=== PATIENT | female | born 2000 | race Hispanic/Latino ===

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

== ENCOUNTER 2024-07-07 22:07 | Emergency (ER) | payer OTHER ==
[~2024-07-07] VITALS: Ht 152.4 cm; Wt 83.9 kg
[~2024-07-07 22:07] MED LIST: CEFDINIR300 MG PO; CEPHALEXIN500 MG PO; CIPRO250 MG PO; DIPHENHYDRAMINE25 M2 PO; ESGIC 50-325-41 EACH PO; ONDANSETRON ODT4 MG PO; ZOFRAN8 MG PO
[2024-07-07 22:39] VITALS: TEMP 98.4
[2024-07-07] MEDS: SODIUM CHLORIDE 0.9% 1000ML 1,000 ML IV ONE (23:11)
[2024-07-07] MEDS: FAMOTIDINE 20 MG/2 ML VIAL IV STA (23:12)
[2024-07-07] MEDS: ONDANSETRON HCL INJ 2MG/ML 2ML 2 MG/ML VIAL IV STA (23:12)
[2024-07-08] MEDS ORDERED: FIORICET 50-301 EACH PO (00:44)
[2024-07-08] MEDS ORDERED: ONDANSETRON ODT4 MG PO (00:45)
[2024-07-08 00:47] VITALS: PULSE 57; RESP 16; O2SAT 100
== END 2024-07-08 00:50 | disposition home or self-care (01) ==
LOC: FSED 22:38
DX: R51.9 Headache, unspecified (principal); D64.9 Anemia, unspecified; R11.0 Nausea
CPT/HCPCS: 70450; 80053; 80307; 81003; 81025; 85025; 99284; J2405; J7030